=== PATIENT | male | born 2000 | race Caucasian/White ===

== ENCOUNTER 2023-11-25 03:33 | Emergency (ER) | payer MEDICAID, OTHER ==
[~2023-11-25] VITALS: Ht 188 cm; Wt 76.8 kg
[~2023-11-25 03:33] MED LIST: CEPH-571 PO; CEPH-572 PO
[2023-11-25 03:40] VITALS: BP 160/87; PULSE 105; RESP 18; O2SAT 98
[2023-11-25] MEDS ORDERED: naproxen 500mg tablet PO ONE (04:40)
[2023-11-25] MEDS ORDERED: diphenhydrAMINE 25mg capsule PO ONE (04:40)
[2023-11-25] MEDS ORDERED: azithromycin 250mg tablet PO ONE (04:40)
[2023-11-25] MEDS ORDERED: AZIT-164 PO (04:46)
[2023-11-25] MEDS ORDERED: NAPR-56 PO (04:46)
[2023-11-25 05:18] VITALS: TEMP 97.2
== END 2023-11-25 05:21 | disposition home or self-care (01) ==
LOC: ER 03:34
DX: H65.92 Unspecified nonsuppurative otitis media, left ear (principal); Z79.899 Other long term (current) drug therapy
CPT/HCPCS: 99284; Q0163